=== PATIENT | female | born 1965 | race Caucasian/White ===

== ENCOUNTER 2017-03-29 06:14 | Emergency (ER) | payer OTHER ==
--- NOTE | ~2017-03-29 | CR63 ---
[facility] A Service of [facility] & [facility] RADIOLOGY TEXT RESULTS PATIENT: KAMLESH GOLDSTEIN LOCATION: SED : 65 UNIT #: [id number] AGE: [address]: Cristian Thompson MD SEX: F ORDER DR: [id number] [place] [id number] E MR#: [id number] Acc #: [id number] NAME: KAMLESH GOLDSTEIN : 1965 SEX: F STUDY DATE/TIME: 03/29/2017 6:37 UNIT: SED ROOM: STUDY DESCRIPTION: CR Chest 2 View Attending Physician: Cristian Thompson M.D. Ordering Physician: Marshall Juárez M.D. Primary Care Physician: Primary Care Physician No MEDICAL IMAGING REPORT This report is preliminary unless electronic signature is present. EXAM PA and lateral chest 2 views, 03/29/2017 COMPARISON 05/22/2013 HISTORY 1-week history of cough and shortness of air. FINDINGS There is mild cardiomegaly but no consolidation, effusion, pneumothorax or suspicious nodule. Dictated by... Howie Orozco M.D. THIS IS AN ELECTRONICALLY VERIFIED REPORT Howie Orozco M.D. at 03/29/2017 2:12 PM RAMONE/noé TD: 03/29/2017 08:30 JOB #: [id number] MEDICAL IMAGING REPORT Page 1 of 1
[~2017-03-29 06:14] MED LIST: AFRIN15 M1; ALBUTEROL17 GM INH; AMOXICILLIN875 MG PO; AZITHROMYCIN250 MG PO; BENZONATATE PO; FOLIC ACID1 MG PO; HYDROCHLOROTHIA25 MG PO; LISINOPRIL10 MG PO; MEDROL DOSEPAK4 MG PO; METHOTREXATE2.5 MG PO; METOPROLOL TART25 MG PO; MUCINEX DM TABL1 BOX; PREDNISOLONE SO10 MG PO; TESSALON200 MG PO
[2017-03-29] MEDS ORDERED: PROAIR HFA8.5 GM INH (06:24)
[2017-03-29] MEDS ORDERED: PREDNISONE10 MG PO (06:25)
[2017-03-29] MEDS ORDERED: LOPRESSOR PO (06:26)
[2017-03-29] MEDS ORDERED: METHOTREXATE2.5 MG PO (06:26)
[2017-03-29] MEDS ORDERED: ZESTRIL10 M1 PO (06:27)
[2017-03-29] MEDS ORDERED: AZITHROMYCIN250 MG PO (06:27)
[2017-03-29] MEDS ORDERED: FOLIC ACID1 MG PO (06:27)
[2017-03-29] MEDS ORDERED: OTEZLA1 EACH PO (06:28)
== END 2017-03-29 07:22 | disposition home or self-care (01) ==
LOC: SED 06:14
DX: J40 Bronchitis, not specified as acute or chronic (principal); I10 Essential (primary) hypertension; Z90.710 Acquired absence of both cervix and uterus
CPT/HCPCS: 71020; 94640; 99284